=== PATIENT | male | born 1965 | race African-American/Black ===

== ENCOUNTER 2016-07-29 11:44 | Emergency (ER) | payer OTHER ==
[~2016-07-29] VITALS: Ht 175.3 cm; Wt 88.0 kg
[~2016-07-29 11:44] MED LIST: CYCL5TAB PO; TRAM50 PO; Z.0.NO CURRENT MEDS
[2016-07-29 11:48] VITALS: BP 130/84; PULSE 94; RESP 20; TEMP 98.8; O2SAT 96
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
[2016-07-29] MEDS ORDERED: PENI500T PO (13:44)
[2016-07-29] MEDS ORDERED: PERI0.126 SWISH-SPIT (13:44)
[2016-07-29] MEDS ORDERED: POLY10O EACH EYE (13:44)
== END 2016-07-29 14:18 | disposition home or self-care (01) ==
LOC: NEPB 11:44
DX: K02.9 Dental caries, unspecified (principal); K00.1 Supernumerary teeth; H10.32 Unspecified acute conjunctivitis, left eye; F17.200 Nicotine dependence, unspecified, uncomplicated
CPT/HCPCS: 99282